=== PATIENT | male | born 1985 | race Caucasian/White ===

== ENCOUNTER 2018-01-25 18:38 | Emergency (ER) | payer OTHER ==
[2018-01-25] MEDS ORDERED: OLANZapine DISINTEGR 5 MG TAB PO ONE (19:03)
--- NOTE | 2018-01-25 19:03 | EDPHY ---
H & P Stated Complaint: delusional hearing voices m1 police Source: Patient, Police, RN/MD Exam Limitations: Clinical condition - Personal History Current Tetanus Diphtheria and Acellular Pertussis (TDAP): Yes - Medical/Surgical History Hx Asthma: No Hx Chronic Respiratory Disease: No Hx Diabetes: No Hx Cardiac Disease: No Hx Renal Disease: No Hx Cirrhosis: No Hx Alcoholism: No Hx HIV/AIDS: Yes Hx Splenectomy or Spleen Trauma: No Other PMH: htn - Social History Smoking Status: Current every day smoker Time Seen by Provider: 01/25/18 18:56 HPI/ROS: HPI: This is a 32-year-old male who presents with Chief Complaint: delusional hearing voices m1 police Location: psych Quality: Hearing voices, paranoid Duration: Today Signs and Symptoms: + auditory hallucinations, + visual hallucinations, no suicidal ideation with a plan, no homicidal ideation, + paranoia Timing: Acute on chronic Severity: Moderate to severe Context: Patient reports that he used cocaine and alcohol last night and woke up this morning with voices in his head that he believes were after them and trying to hurt him. He initially thought it was a prank that his roommate was playing on him but when he asked his roommate, his roommate said no. He then went for a walk and then the voices continued and he thought people waving at him and talking to him when they were not. When he arrived home to his apartment, the police were there and placed him on an M1 hold. Modifying Factors: Comment: ROS: A comprehensive 10 system review of systems is otherwise negative aside from elements mentioned in the history of present illness. MEDICAL/SURGICAL/SOCIAL HISTORY: Medical history: Hypertension Surgical history: Adenoidectomy Social history: Alcohol, drug use. Current every day smoker. Family history noncontributory. CONSTITUTIONAL: Tidy, well groomed, adult white male, awake and alert, no obvious distress HEENT: Atraumatic and normocephalic, PERRL, EOMI. Nares patent; no rhinorrhea; no nasal mucosal edema. Tympanic membranes clear. Oropharynx clear, no exudate and moist pink mucosa. Airway patent. No lymphadenopathy. No meningismus. Cardiovascular: Normal S1/S2, tachycardia, regular rhythm, without murmur rub or gallop. PULMONARY/CHEST: Symmetrical and nontender. Clear to auscultation bilaterally. Good air movement. No accessory muscle usage. ABDOMEN: Soft, nondistended, nontender, no rebound, no guarding, no peritoneal signs, no masses or organomegaly. No CVAT. EXTREMITIES: 2/2 pulses, strength 5/5, no deformities, no clubbing, no cyanosis or edema. NEUROLOGICAL: no focal neuro deficits. GCS 15. SKIN: Warm and dry, no erythema. no rash. Good capillary refill. PSYCH: Good eye contact, + flight of ideas, tangential disorganized thought process, poor insight and judgment, + auditory hallucinations, + visual hallucinations, no suicidal ideation with a plan, no homicidal ideation, + paranoia (Jessica Duron) Constitutional: Initial Vital Signs Temperature (C) 36.8 C 01/25/18 18:45 Heart Rate 111 H 01/25/18 18:45 Respiratory Rate 20 01/25/18 18:45 Blood Pressure 172/114 H 01/25/18 18:45 O2 Sat (%) 99 01/25/18 18:45 O2 Delivery Mode Room Air Allergies/Adverse Reactions: Penicillins Allergy (Verified 01/25/18 18:42) Home Medications: Medication Instructions Recorded Bactrim DS 01/25/18 Biktarvy 50-200-25 mg Tablet 01/25/18 Ergocalciferol (Vitamin D2) 01/25/18 Medical Decision Making ED Course/Re-evaluation: Agree with M1 hold for paranoia and psychosis. Given Zyprexa 5 mg upon arrival. Labs and UDS ordered. 2034: Laboratory studies reviewed and grossly unremarkable. Urine drug screen positive for cocaine. Medically clear for mental health evaluation. 2054: TLC at bedside 0000: End if Shift. Signed over to Dr. Davis pending final disposition. This patient was seen under the supervision of my secondary supervising physician. I evaluated care for this patient independently. Discussed this patient with Dr. Wellington. (Jessica Duron) 4:30 a.m.- The patient has been accepted at [facility] by Dr. Cramer for ongoing psychiatric care. I have completed the EMTALA form. (Laura Davis) Differential Diagnosis: Differential diagnosis includes but is not limited to major depression, anxiety disorder, schizophrenia, bipolar disorder, intoxicant use, suicidal ideation, psychosis, riley. (Jessica Duron) - Data Points Laboratory Results: Laboratory Results 01/25/18 19:15 01/25/18 19:15 01/25/18 01/25/18 01/25/18 20:05 19:15 19:15 WBC 5.74 10^3/uL 10^3/uL (3.80-9.50) RBC 4.14 10^6/uL L 10^6/uL (4.40-6.38) Hgb 14.0 g/dL g/dL (13.7-17.5) Hct 40.3 % % (40.0-51.0) MCV 97.3 fL fL (81.5-99.8) MCH 33.8 pg pg (27.9-34.1) MCHC 34.7 g/dL g/dL (32.4-36.7) RDW 13.6 % % (11.5-15.2) Plt Count 105 10^3/uL L 10^3/uL (150-400) MPV 9.9 fL fL (8.7-11.7) Neut % (Auto) 79.1 % H % (39.3-74.2) Lymph % (Auto) 10.1 % L % (15.0-45.0) [place] % (Auto) 7.8 % % (4.5-13.0) Eos % (Auto) 1.4 % % (0.6-7.6) Baso % (Auto) 0.9 % % (0.3-1.7) Nucleat RBC Rel Count 0.0 % % (0.0-0.2) Absolute Neuts (auto) 4.54 10^3/uL 10^3/uL (1.70-6.50) Absolute Lymphs (auto) 0.58 10^3/uL L 10^3/uL (1.00-3.00) Absolute Monos (auto) 0.45 10^3/uL 10^3/uL (0.30-0.80) Absolute Eos (auto) 0.08 10^3/uL 10^3/uL (0.03-0.40) Absolute Basos (auto) 0.05 10^3/uL 10^3/uL (0.02-0.10) Absolute Nucleated RBC 0.00 10^3/uL 10^3/uL (0-0.01) Immature Gran % 0.7 % % (0.0-1.1) Immature Gran # 0.04 10^3/uL 10^3/uL (0.00-0.10) RBC/WBC/PLT Morphology TNP Platelet Estimate DECREASED L (ADEQ) Sodium 135 mEq/L mEq/L (135-145) Potassium 4.1 mEq/L mEq/L (3.3-5.0) Chloride 100 mEq/L mEq/L (97-110) Carbon Dioxide 22 mEq/l mEq/l (22-31) Anion Gap 13 mEq/L mEq/L (6-14) BUN 24 mg/dL H mg/dL (7-23) Creatinine 1.0 mg/dL mg/dL (0.7-1.3) Estimated GFR > 60 Glucose 103 mg/dL H mg/dL (70-100) Calcium 9.5 mg/dL mg/dL (8.5-10.4) Urine Opiates Screen NEGATIVE (NEGATIVE) Urine Barbiturates NEGATIVE (NEGATIVE) Ur Phencyclidine Scrn NEGATIVE (NEGATIVE) Ur Amphetamine Screen NEGATIVE (NEGATIVE) U Benzodiazepines Scrn NEGATIVE (NEGATIVE) Urine Cocaine Screen NON-NEGATIVE H (NEGATIVE) U Marijuana (THC) Screen NEGATIVE (NEGATIVE) Ethyl Alcohol < 10 mg/dL mg/dL (0-10) Medications Given: Discontinued Medications Olanzapine (Zyprexa Zydis) 5 mg PO EDNOW ONE Stop: 01/25/18 19:04 Last Admin: 01/25/18 19:18 Dose: 5 mg Departure - Departure Disposition: Other Psych, Not [place] Clinical Impression: Paranoid psychosis Condition: Fair
[2018-01-25 19:35] LABS: PLATELET COUNT 105 10^3/uL (150-400)
--- NOTE | 2018-01-25 22:56 | ASMTTCLDSP ---
TLC Discharge Disposition Disposition: Answers: Admit Disposition Notes: Notes: In consultation with [facility] psychiatrist, Jorgito Bolaños MD, Dr. Bolaños advised that the patient be directly admitted on a voluntary basis. The patient was given the 3[facility] prohibited belongings list while in the ED. Was patient given the Answers: Yes [facility]patient [facility] Prohibited Belongings List while in the ED? For inpatient Jorgito Bolaños MD admission, the following psychiatrist agreed to accept patient for admission to [facility]): Date Signed: 01/25/2018 10:55 PM Electronically Signed By:Zeynep Munroe
--- NOTE | 2018-01-25 23:46 | ASMTTLCEVL ---
TLC Evaluation - Basic Information Evaluation Start Date and 01/25/2018 08:30 PM Time Hospital Status Answers: M1 Hold 72-hr M1 Hold Start Date 01/25/2018 05:10 PM and Time Patient statement Notes: "I went three days without sleeping. I used cocaine and drank alcohol which was not a good idea when I wasn't sleeping. I had a late shift and I thought my roommates were trying to kick me out in cruel and pranky way. I went to walk outside. I put my phone on the ground and left it there because they programmed my phone and were sending things I said to radios around me. I could hear their voices talking about me. I was gone for a long time. I explained it to them and they called the police." Narrative Notes: The patient is a 32 YO male, single, employed, with a and history of substance abuse and dependence although no diagnostic/psychiatric history. The is living with roommates in [place], [place]. The patient arrived via EMS on an M1 hold placed by police after patient he was presenting with paranoid ideation. Per M1 hold, Romero Morales hadn't slept for 3 days. He was hearing music in his head. He accused his roommates of plotting to kick him out of his house. He wanted to go stay in a hotel to get out of range of the transmitter. He quit working." The patient's parents expressed concern for their the patient's safety. They are afraid that the patient is a danger to himself. The patient reported to his parents that he would like to participate in substance abuse treatment. Diagnosis History Notes: The patient denied any previous D/O and DX HX. Prior suicide attempts Notes: The patient reported that he tried to suicide by hanging in 2004 but the "cherise broke off." Prior hospitalizations Notes: The patient denied any prior hospitalizations for MH. Treatment Responses Notes: The patient denied history of treatment for MH; unable to assess. History of violence Notes: The patient denied any homicidal ideation or previous HX of violence. Therapist: None Psychiatrist: None Medications (name, dosage, route, freq uency) Notes: Biktarvy, unknown dosage, once daily, PO unknown blood pressure medication, once daily, PO Gabapentin, 100mg, six times daily, PO VItamin D, unknown dosage, once daily, PO Allergies/Reaction Notes: The patient reported an allergy to penicillin. Sleep Notes: The patient reported hypnagogic jerks three-four times per week at bedtime. Appetite Notes: The patient stated, "I've always been a light eater." Medical/Surgical history Notes: According to the patient's parents, the patient was treated for shingles in September of 2017. The patient has an HIV diagnosis. He reported having his wisdom teeth and tonsils surgically removed and denied any other invasive or surgerical procedures. Substance use history (frequency, intensity, his tory, duration) Notes: The patient reported he will drink "half of a liter of fireball" daily to intoxication. The patient stated that the first time he drank ETOH was when he was 16 years old and the last time he drank was 01/24/2018. The patient reported he was doing .5 grams of cocaine every three days for six months, six weeks agoprior to his last reported use. The patient stated that the first time he used cocaine was when he was 21 years old and the last time he drank was 01/25/2018. The patient denied using any other substances. Family composition Notes: The clients parents live in [place]. He has two older sisters; one is located in [place] and the other is in [place]. Family psychiatric/substance abuse history Notes: The patient denied any family psychiatric abuse HX.The patient reported a history of alcoholism including that his father and sister abuse ETOH. Developmental history Notes: The patient denied any developmental issues or learning disabilities. The patient denied ADD or ADHD. The patient denied any TBIs concussions or LOC.The patient denied any physical abuse, emotional abuse, or sexual abuse. The patient endorsed having achieved normal developmental milestones. He grew up in [place]. Abuse concerns Answers: None Marital status/children Notes: The patient is single without children. Living situation Notes: The patient lives with mutliple roommates in [place], [place]. Sexual history/orientation Notes: The patient identifies as garcia. Peer support/family strengths Notes: The patient endorsed having a supportive peer group. Education level/history Notes: The patient reported having attended some college. 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 Notes: No known afiliation. Legal Notes: The patient denied any legal issues. Latter-Day/Spiritual Notes: The patient reported none that would interfere with treatment. The patient stated, "I'm atheist." Leisure Notes: The patient reported enjoying "going to bars, movies, and bowling." Patient's strengths Answers: Honest (Please select at least TWO strengths): Intelligent Motivated for Treatment Supportive Family Willingness [facility] Evaluation - Mental Status Exam Appearance: Answers: Appropriate Clean Eye Contact: Answers: Appropriate for Culture Good/Direct Mood: Answers: Euthymic Affect: Answers: Appropriate Anxious Calm Congruent w/ Mood Flat Behavior: Answers: Appropriate Cooperative Talkative Withdrawn Speech: Answers: Relevant Logical Clear Coherent Mumbling Rapid Soft Thought Process: Answers: Organized Oriented Paranoid Racing Thoughts Insight: Answers: Poor Judgement: Answers: Poor Manic Signs/Symptoms Answers: Racing Thoughts Depression Answers: Flat Affect Signs/Symptoms: Withdrawn Anxiety Signs/Symptoms Answers: Generalized Anxiety Hallucinations: Answers: Auditory Delusions: Answers: Paranoid Ideation Persecution Current Stage of Change Answers: Precontemplation Pt reported to have Answers: No suicidal/self-injuring ideation/behavior? Pt reported to be making Answers: No suicidal/self-injuring threats? Pt reported to have Answers: No aggression/assault ideation/behavior? Pt reported to be making Answers: No aggression/assault threats? [facility] Evaluation - Suicide/Homicide Risk Suicide Risk Factors: Answers: Alcohol/Heavy Drug Use Anhedonia Anxiety/Panic, Severe Flat Affect Prior Suicide Attempt(s) Serious Health Issue, HIV/AIDS Homicide/violence risk Answers: Heavy Alcohol Use factors: Heavy Drug Use Paranoid Ideation Current Suicidal Answers: No Ideation? Current Suicidal Ideation Answers: No in the Past 48 Hours? Current Suicidal Ideation Answers: No in the Past Month? Current Suicidal Answers: No Ideation, Worst Ever? Suicide Internal Answers: Frustration Tolerance Protective Factors: Yaneli with Stress Suicide External Answers: Positive Therapeutic Protective Factors: Relationships Ranking of patient's Answers: Severe suicidal risk: Ranking of patient's Answers: Low homicidal risk: [facility] Evaluation - Wrap-up BDI Total Score: 23 BDI Question #2 Score: 1 BDI Question #9 Score: 1 BSS Total Score: 8 AXIS I Diagnosis (include DSM-V and ICD-10 codes), must also be entered in [employer], which is the source of truth. Notes: Generalized Anxiety Disorder 300.02 (F41.1) Alcohol Use Disorder, severe 303.90 (F10.20) Cocaine Use Disorder, moderate 305.60 (F14.20) R/O: Brief Psychotic Disorder 298.8 (F.23) Evaluation End Date and 01/25/2018 11:45 PM Time (HH:SATHYA): Date Signed: 01/25/2018 11:45 PM Electronically Signed By:Zeynep Munroe
[2018-01-26 05:31] VITALS: BP 142/102
--- NOTE | 2018-01-26 05:56 | ASMTLCPROG ---
Notes Note: Notes: In consultation with [facility] on-call psychiatrist, Dr. Mireille MD, Dr. Kendrick concurred that pt appears to meet 27-65 criteria requiring psychiatric hospitalization as the patient appears to be an imminent risk of harm to self due to a mental illness condition. Disposition - Pt accepted for placement at [facility] under Dr. Kennedy Pelaez. Reason for transfer is that pt has [facility] insurance and [facility] is not in network with [facility]. Date Signed: 01/26/2018 05:56 AM Electronically Signed By:Josué Jules
--- NOTE | 2018-01-26 06:01 | ASMTLCPROG ---
Notes Note: Notes: Correction note to Disposition - Pt accepted for placement at [facility] under Dr. Casandra Cramer instead of Dr. Kennedy Pelaez. Pt has [facility] insurance and [facility] not in network. Date Signed: 01/26/2018 06:01 AM Electronically Signed By:Josué Jules
== END 2018-01-26 05:25 ==
DX: F22 Delusional disorders (principal); F14.90 Cocaine use, unspecified, uncomplicated; F10.99 Alcohol use, unspecified with unspecified alcohol-induced disorder
CPT/HCPCS: 80305; G0480